=== PATIENT | male | born 1965 | race Caucasian/White ===

== ENCOUNTER 2016-12-21 11:10 | Outpatient (CLI) | payer BC ==
[2016-12-21 12:39] LABS: #Eosinphils 0.1 thou/uL (0.0-0.7); #Lymphocytes 1.3 thou/uL (1.20-3.40); #Monocytes 0.5 thou/uL (0.11-0.59); #Neutrophils 4.4 thou/uL (1.40-6.50); %Basophils 0.4 % (0.0-1.0); %Eosinophils 1.5 % (0.0-10.0); %Lymphocytes 20.6 % (21.0-51.0); %Monocytes 7.3 % (0.0-10.0); Hematocrit 42.6 % (42.0-52.0); Mean Platelet Volume 9.1 fL (7.4-10.4); Red Blood Cell (RBC) Count 4.75 mill/uL (4.70-6.10); White Blood Cell (WBC) Count 6.3 thou/uL (4.8-10.8)
[2016-12-21 12:58] LABS: Anion Gap 11 mmol/L (10-20); BUN (Urea Nitrogen) 16 mg/dL (8.4-25.7); Calc. Creatinine Clearance 0 mL/min (70-130); Calcium 9.5 mg/dL (7.8-10.44); Carbon Dioxide 28 mmol/L (22-29); Chloride 107 mmol/L (98-107); Estimated GFR-MDRD 83
--- NOTE | 2016-12-22 10:01 | EKG ---
Test Reason : PREOP Blood Pressure : / mmHG Vent. Rate : 053 BPM Atrial Rate : 053 BPM P-R Int : 158 ms QRS Dur : 086 ms QT Int : 442 ms P-R-T Axes : 056 036 028 degrees QTc Int : 414 ms Sinus bradycardia Otherwise normal ECG When compared with ECG of 27-SEP-2014 07:08, Vent. rate has decreased BY 53 BPM Confirmed by DELANO SALGADO ([id number]) on 12/22/2016 10:00:59 AM Referred By: SUSAN Confirmed By:DELANO SALGADO
== END 2016-12-21 11:11 | disposition home or self-care (01) ==
LOC: LABBT 11:10
PROVIDERS: ATTEND Neurological Surgery
DX: Z01.818 Encounter for other preprocedural examination (principal); M54.16 Radiculopathy, lumbar region
CPT/HCPCS: 80048; 85025; 93005; 93010

== ENCOUNTER 2016-12-28 08:24 | Day surgery (SDC) | payer BC ==
[2016-12-21 11:18] VITALS: BMI 25.7
--- NOTE | 2016-12-27 21:59 | HP ---
HISTORY OF PRESENT ILLNESS: Mr. Duarte is a 51-year-old gentleman who presents for evaluation of r oughly 1-1/2 month severe left lower extremity radiculopathy in an S1 pattern. He has had a history of this pain in the past 2 years or so on and off and then ultimately, his pain has significantly w orsened. He has attempted injections, physical therapy, and chiropractics with minimal help. He mathur s an MRI from [facility] that reveals an inferiorly migrated L5 disk herniation to the left, wh ich showed the symptoms very well, who presents now to discuss the possibility of surgical history i f possible. PAST MEDICAL HISTORY: Hydronephrosis and hypertension. CURRENT MEDICATIONS: Amlodipine, bisoprolol, Lyrica, and multivitamins. ALLERGIES: To PENICILLIN and DIOVAN. PAST SURGICAL HISTORY: Kidney stent placement. PHYSICAL EXAMINATION: GENERAL: Patient is alert and oriented x3. NEUROLOGIC: Gait is normal. Straight leg raise is positive on the left, negative on the right is n egative Alexey's maneuver bilaterally. There is no sensory disturbance that I can discern. Reflex es are equal and present bilaterally at the patella. ASSESSMENT: Lumbar radiculopathy. PLAN: Dr. Ambrose met with the patient, reviewed imaging, and ultimately advocated for a left L5 disk ectomy. He explained to the patient the risks, benefits, and alternatives to the procedure. The keli conklin expressed understanding and would like to move forward with surgery as discussed. I do believ e the patient is mentally competent and capable of making medical decisions for himself and we will move forward with surgery as planned. This is Ross Costa PA-C, dictating for Dr. Ambrose.
[2016-12-28] MEDS ORDERED: Ketorolac Tromethamine 30 MG/ML VIAL ONE (08:56)
[2016-12-28] MEDS ORDERED: Midazolam HCl 2 mg/2 ml Vial ONE (09:31)
[2016-12-28] MEDS ORDERED: Fentanyl 100 MCG/2 ML VIAL ONE (09:31)
[2016-12-28] MEDS ORDERED: Levofloxacin 500 mg/D5W 100 ml Premix Bag ONE (09:34)
[2016-12-28] MEDS ORDERED: Clindamycin/D5W 900 mg/50 ml Premix Bag ONE ×2 (09:34→17:04)
[2016-12-28] MEDS ORDERED: Thrombin 5000 UNITS/5 ML VIAL ONE (09:39)
[2016-12-28] MEDS ORDERED: Sodium Chloride 0.9% 0 ML ONE (09:39)
[2016-12-28] MEDS ORDERED: Bupivacaine/Epinephrine 0.5% 10 ML VIAL ONE ×3 (09:52→11:55)
[2016-12-28] MEDS ORDERED: Propofol 200 MG/20 ML VIAL ONE (10:43)
[2016-12-28] MEDS ORDERED: Ondansetron HCl/PF 4 MG/2 ML Vial ONE (10:43)
[2016-12-28] MEDS ORDERED: PHENYLEPHRINE-NS 100 MCG/ML 10 ML SYRINGE ONE (10:43)
[2016-12-28] MEDS ORDERED: Dexamethasone 20 MG/5 ML VIAL ONE (10:43)
[2016-12-28] MEDS ORDERED: Lidocaine 2% PF 10 ML AMP (For Epidural Use) ONE (10:43)
[2016-12-28] MEDS ORDERED: ePHEDrine/0.9% NaCl/PF SYRINGE 50 mg/10 ml ONE (10:43)
[2016-12-28] MEDS ORDERED: Bupivacaine PF 0.5% 30 ML VIAL ONE ×2 (12:24→12:42)
[2016-12-28] MEDS ORDERED: Tamsulosin HCl 0.4 MG CAP ONE (14:56)
[2016-12-28] MEDS ORDERED: Promethazine HCl 25 MG/ML VIAL ONE (15:51)
[2016-12-28] MEDS ORDERED: Sodium Chloride 0.9% 10 ML ONE (17:09)
[2016-12-28] MEDS ORDERED: Acetaminophen/Codeine 30-300mg Tablet ONE (17:14)
--- NOTE | 2016-12-29 08:57 | OP ---
DATE OF PROCEDURE: 12/28/2016 SURGEON: Larry Ambrose M.D. WASHER MEAT: Bernardino Costa PA-C. INDICATION: Pain. DIAGNOSIS: Lumbar radiculopathy. PROCEDURE: Left L5 discectomy. ANESTHESIA: General. TECHNIQUE: The patient was brought to the operating room and placed under general anesthesia. He w as flipped from a supine to a prone position on the operating room table. A linear incision was maxine nned over the L5-S1. After prepping and draping and after an appropriate operative pause, the incis ion was created. The soft tissues were swept left of midline. Self-retaining retractors placed in the wound for optimal exposure. After confirming the appropriate location, 2, 3 and 4-mm Kerrisons were used to perform a hemilaminectomy along the inferior aspect of L5 and superior aspect of S1. T he descending S1 nerve root was identified and mobilized medially. A large protuberant disk mask wa s identified just medial to the pedicle beneath the descending S1 nerve root. This was carefully re moved until there was complete decompression of the descending S1 nerve root. The wound was then ir rigated. Hemostasis was maintained throughout. The wound was then closed in anatomic layers and a pressure dressing was applied. There were no known procedural complications.
--- NOTE | 2016-12-29 09:34 | OP ---
DATE OF PROCEDURE: 12/28/2016 PREOPERATIVE DIAGNOSIS: Bilateral inguinal hernia. POSTOPERATIVE DIAGNOSIS: Bilateral inguinal hernia. OPERATION PERFORMED: Open bilateral inguinal hernia repair with mesh patch and plug. SURGEON: Dr. Tristin Sepulveda ANESTHESIA: General endotracheal. INDICATIONS: The patient is a 51-year-old white male. He was having spine surgery per Dr. Eduardo crystal. He has a long history of bilateral inguinal hernia and requests simultaneous hernia repair unde r the same anesthetic. OPERATIVE PROCEDURE IN DETAIL: Informed consent was obtained. The patient was taken to the operati ng room where general endotracheal anesthesia was obtained. Dr. Ambrose performed the patient's back surgery with the patient in the prone position. Upon successful and uneventful completion of his op eration, the wound was closed in he was rolled over into the supine position. His bilateral indirect inguinal area was trimmed of hair, prepped with ChloraPrep, draped in sterile fashion. Local anesthetic was infiltrated using 0.25% Marcaine with epinephrine. The operation wa s begun on the left side. An oblique left inguinal incision was created and dissection was carried through skin and subcutaneous tissue. The fascia was incised parallel to its fibers so as to open t he inguinal canal. The cord was dissected and controlled with a Navarre drain. The patient was not ed to have a large direct inguinal hernia with no evidence of an indirect hernia. There was a bulgi ng aspect of fatty tissue on the lateral aspect of the inferior epigastric vessels. The hernia sac was circumscribed at its base with electrocautery. Next a large mesh plug was obtained and secured to the apex of the hernia sac and the complex was inverted in the preperitoneal space. The plug was secured to the fascial edges with interrupted sutures of 2-0 Vicryl. The wound was imbricated with 2 interrupted sutures of 2-0 Vicryl. Mesh patch was obtained, trimmed to appropriate size, placed in the floor of the inguinal canal, and secured in place with several interrupted sutures of 2-0 Chauncey ryl. ON-Q pain catheter was obtained and brought into the wound laterally and positioned appropriately. The fascia was closed over the pain pump catheter. The wound was closed in layers with 3-0 and 4-0 Monocryl. The catheter was flushed with 0.5% plain Marcaine. Attention was turned to the right side. A mirror image incision and dissection was performed. The patient was noted to have another substantial direct inguinal hernia with no evidence of an indirect hernia sac. The operation was performed similarly using a large mesh patch and plug. The ON-Q duke n catheter was positioned in the same fashion on the right side. Both skin incisions were closed externally with Dermabond. A spot of Dermabond was placed at the ca theter exit site bilaterally. The catheters were attached to a bifurcated catheter attached to a 40 0 mL ON-Q reservoir. This was filled with 0.5% plain Marcaine. Sterile occlusive dressings were ap plied over the catheter exit sites. There were no complications. Blood loss was negligible. The p atient tolerated the procedure well and was taken to recovery in stable condition.
== END 2016-12-28 18:00 | disposition home or self-care (01) ==
LOC: SDC 08:24
PROVIDERS: ATTEND Specialist
PROC: 0YUA0JZ Supplement Bilateral Inguinal Region with Synthetic Substitute, Open Approach (ICD-10-PCS; principal; 2016-12-28)
PROC: 01NB0ZZ Release Lumbar Nerve, Open Approach (ICD-10-PCS; principal; 2016-12-28)
PROC: 0ST20ZZ Resection of Lumbar Vertebral Disc, Open Approach (ICD-10-PCS; principal; 2016-12-28)
DX: M54.16 Radiculopathy, lumbar region (principal); K40.20 Bilateral inguinal hernia, without obstruction or gangrene, not specified as recurrent; I10 Essential (primary) hypertension; Z79.82 Long term (current) use of aspirin; Z79.899 Other long term (current) drug therapy; Z88.0 Allergy status to penicillin; Z88.8 Allergy status to other drugs, medicaments and biological substances
CPT/HCPCS: 76001; 96374; S2900; A4216; A4306; C1781; J0131; J1100; J1170; J1885; J1956; J2001; J2250; J2405; J2550; J2704; J3010; J3370; J3490; S0020

== ENCOUNTER 2016-12-28 19:30 | Observation (INO) | payer BC ==
[2016-12-28 20:27] LABS: #Lymphocytes 0.5 thou/uL (1.20-3.40); #Monocytes 0.4 thou/uL (0.11-0.59); #Neutrophils 9.9 thou/uL (1.40-6.50); %Basophils 0.1 % (0.0-1.0); %Eosinophils 0.2 % (0.0-10.0); %Lymphocytes 4.6 % (21.0-51.0); %Monocytes 3.5 % (0.0-10.0); Hematocrit 41.8 % (42.0-52.0); Mean Platelet Volume 8.8 fL (7.4-10.4); Red Blood Cell (RBC) Count 4.61 mill/uL (4.70-6.10); White Blood Cell (WBC) Count 10.9 thou/uL (4.8-10.8)
[2016-12-28 20:33] LABS: PTT 26.7 SEC (22.9-36.1); Prothrombin Time 14.3 SEC (12.0-14.7)
[2016-12-28 20:48] LABS: ALT (SGPT) 21 U/L (8-55); AST (SGOT) 26 U/L (5-34); Alkaline Phosphatase 54 U/L (40-150); Anion Gap 16 mmol/L (10-20); BUN (Urea Nitrogen) 13 mg/dL (8.4-25.7); CK (CPK) 306 U/L (30-200); Calc. Creatinine Clearance 0 mL/min (70-130); Carbon Dioxide 24 mmol/L (22-29); Chloride 105 mmol/L (98-107); Estimated GFR-MDRD 66; Globulin 2.3 g/dL (2.4-3.5); Protein, Total 6.3 g/dL (6.0-8.3)
[2016-12-28 20:50] LABS: Troponin I Less than 0.010 ng/mL (< 0.028)
--- NOTE | 2016-12-28 22:08 | CT ---
HEAD CT NONCONTRAST: Indication: Left upper extremity paresthesia. FINDINGS: There is no evidence of acute intracranial hemorrhage, mass effect or midline shift. Ventricular sys tem is within normal limits in size. Focal hypodensity of the posterior and lateral aspect of the ri ght lentiform nucleus could relate to dilated perivascular space or cavitary lacunar infarction. There is a small osteoma involving the lateral aspect of the left frontal air cells. IMPRESSION: 1. No acute intracranial hemorrhage or mass effect. 2. Dilated perivascular space versus cavitary lacunar infarction by lentiform nucleus. POS: [facility]
[2016-12-28] MEDS ORDERED: HYDROcodone/Acetaminophen 5/325 mg Tablet ONE ×2 (22:14→22:41)
--- NOTE | 2016-12-28 22:16 | RAD ---
UPRIGHT PORTABLE CHEST ONE VIEW: History: 51-year-old male with left upper extremity parasethia. Hernia and back surgery today, now complainin g of tingling and numbness in both arms. Comparison: 08-24-14 FINDINGS: Monitor leads overlie the chest. Heart size is within normal limits. The lungs are clear. IMPRESSION: No acute intrathoracic disease. POS: [facility]
[2016-12-28] MEDS ORDERED: HYDROcodone/Acetaminophen 5/325 mg Tablet PO PRN ×2 (23:27)
[2016-12-28] MEDS ORDERED: Ondansetron ODT 4 MG TAB SL PRN (23:27)
[2016-12-28] MEDS ORDERED: Ondansetron HCl/PF 4 MG/2 ML Vial IVP PRN (23:27)
[2016-12-28] MEDS ORDERED: Acetaminophen 325 MG TAB PO PRN (23:27)
[2016-12-28 23:50] LABS: Troponin I Less than 0.010 ng/mL (< 0.028)
[2016-12-29] MEDS ORDERED: Nitroglycerin 0.4 MG TAB (25 Tab Bottle) PO PRN (00:48)
[2016-12-29] MEDS ORDERED: Ondansetron HCl/PF 4 MG/2 ML Vial IVP PRN (00:48)
[2016-12-29] MEDS ORDERED: Acetaminophen 325 MG TAB PO PRN (00:48)
[2016-12-29] MEDS ORDERED: Mag-Al 1200 mg/1200 mg/30 ML UDCUP PO PRN (00:48)
[2016-12-29] MEDS ORDERED: Senokot 8.6 MG TAB PO PRN (00:48)
[2016-12-29 02:41] LABS: #Lymphocytes 0.6 thou/uL (1.20-3.40); #Monocytes 0.7 thou/uL (0.11-0.59); #Neutrophils 9.4 thou/uL (1.40-6.50); %Basophils 0.1 % (0.0-1.0); %Eosinophils 0.2 % (0.0-10.0); %Lymphocytes 5.5 % (21.0-51.0); %Monocytes 6.3 % (0.0-10.0); Hematocrit 37.9 % (42.0-52.0); Mean Platelet Volume 8.7 fL (7.4-10.4); Red Blood Cell (RBC) Count 4.19 mill/uL (4.70-6.10); White Blood Cell (WBC) Count 10.7 thou/uL (4.8-10.8)
[2016-12-29] MEDS: Sodium Chloride 0.9% 1,000 ML IV SCH ×2 (02:56→18:52)
[2016-12-29 02:57] LABS: Troponin I 0.015 ng/mL (< 0.028)
[2016-12-29 03:15] LABS: ALT (SGPT) 19 U/L (8-55); AST (SGOT) 24 U/L (5-34); Alkaline Phosphatase 45 U/L (40-150); Anion Gap 11 mmol/L (10-20); BUN (Urea Nitrogen) 12 mg/dL (8.4-25.7); Bilirubin, Total 0.9 mg/dL (0.2-1.2); Calc. Creatinine Clearance 113 mL/min (70-130); Carbon Dioxide 25 mmol/L (22-29); Chloride 109 mmol/L (98-107); Cholesterol 172 mg/dl (< 200 Desired); Estimated GFR-MDRD 80; Globulin 2.1 g/dL (2.4-3.5); LDL Cholesterol, Calculated 113 mg/dL; Protein, Total 5.7 g/dL (6.0-8.3)
[2016-12-29] MEDS ORDERED: Morphine Sulfate 2 MG/ML SYRINGE SLOW IVP SCH (03:45)
--- NOTE | 2016-12-29 06:08 | HP ---
REASON FOR ADMISSION: Left upper extremity tingling, numbness. HISTORY OF PRESENTING ILLNESS: Patient gives history of having had L5 diskectomy along with bilateral ventral hernia repairs done by Dr. Ambrose and Dr. Sepulveda respectively yesterday morning. He felt good prior to going home. Yesterday around evening, patient felt weak and he also started left upper extremity tingling and numbness. He felt like his left hand was going to sleep. This gradually became worse and patient finally made it to the emergency room. Has no complaints of chest pain as such at present. No complaints of fever, but has dry cough. No urinary frequency or urgency. Has no weakness in any of the extremities as such and is ambulating here in the ER. PAST MEDICAL AND SURGICAL HISTORY: History of hypertension, hydronephrosis with multiple stents, hypertension, L5 diskectomy with ventral hernia x2 repair done yesterday morning, wisdom teeth surgery. CURRENT MEDICATIONS: Takes Lyrica 200 mg twice daily, Norvasc 5 mg p.o. q.a.m. , bisoprolol 5 mg p.o. daily. ALLERGIES: To PENICILLIN and VALSARTAN. PERSONAL HISTORY: Does not abuse alcohol or drugs. No history of smoking. FAMILY HISTORY: Mother is healthy and living. Father has history of atrial fibrillation and is living. Grandma had history of stroke. REVIEW OF SYSTEMS: The following complete review of systems was negative unless otherwise mentioned in the HPI or below: Constitutional: Weight loss or gain, ability to conduct usual activities. Skin: Rash, itching. Eyes: Double vision, pain. ENT/Mouth: Nose bleeding, neck stiffness, pain, tenderness. Cardiovascular: Palpitations, dyspnea on exertion, orthopnea. Respiratory: Shortness of breath, wheezing, cough, hemoptysis, fever, or night sweats. Gastrointestinal: Poor appetite, abdominal pain, heartburn, nausea, vomiting, constiption, or diarrhea. Genitourinary: Urgency, frequency, dysuria , nocturia. Musculoskeletal: Pain, swelling. Neurologic/Psychiatric: Anxiety , depression. Allergy/Immunologic: Skin rash, bleeding tendency. PHYSICAL EXAMINATION: GENERAL: Patient is a 51-year-old male who is currently not in any acute distress. VITAL SIGNS: Blood pressure 136/84, pulse 86 per minute, respiratory rate 20 per minute, temperature 98.5 degrees Fahrenheit, saturating 97% on room air. NECK: Supple, no elevated JVD. HEENT: Eyes, extraocular muscles intact. Pupils reacting to light. Oral cavity, mucous membranes are dry. No exudates or congestion. CARDIOVASCULAR SYSTEM: S1, S2 heard. Regular rhythm. RESPIRATORY SYSTEM: Air entry 1+ bilateral. No rales or rhonchi. ABDOMEN: Soft, bowel sounds heard. No tenderness, rigidity, or guarding. Surgical site on the abdomen is clean. He also has anesthetic infusion going through his abdomen. EXTREMITIES: No peripheral edema or calf tenderness. VASCULAR SYSTEM: Peripheral pulses 1+ bilateral. No ischemic ulcerations or gangrene. CENTRAL NERVOUS SYSTEM: No gross focal deficits seen. Patient is alert, awake , oriented x3. PSYCHIATRIC SYSTEM: The patient's mood is euthymic. No hallucinations or delusions. LABORATORY AND X-RAY FINDINGS: White count of 10, H and H 13 and 41, platelet count 126, MCV is 90 with 91% neutrophils. PT, INR, PTT within normal limits. Electrolytes stable. BUN 13, creatinine 1.1, glucose 203. Liver enzymes within normal limits. CK level is 306. First set of cardiac enzymes are negative. Albumin is 4.0. Chest x-ray done shows no acute intrathoracic disease. CT brain done shows no acute hemorrhage or mass effect. There is a questionable lacunar infarct near the lentiform nucleus versus dilated perivascular space. EKG done shows normal sinus rhythm at 87 beats per minute. There is poor R-wave progression. CLINICAL IMPRESSION AND PLAN: Patient will be under observation on the stroke unit. His left upper extremity paresthesias is slowly resolving. We will obtain serial troponins as well as an MRI without contrast in the morning. Cardiology and Neurology consultations will be requested. We will follow transient ischemic attack evidence based protocol. Echo with 2D Doppler for left ventricular function and ultrasound carotids will be obtained as well. It is unclear if the patient has left upper extremity paresthesias which started in the hand is due to positioning postop at home, or if this is a neurocardiac issue; we will discern the same. We will not do a stress test due to his recent postop status. I have placed him on aspirin 325 mg daily in the hopes that meninges are intact with the diskectomy done, this needs to be confirmed with Dr. Ambrose in the morning. Please note, I have seen and examined patient on 12/28/2016. He also appears to be dehydrated and we will place him on normal saline at 80 mL per hour. We will continue his home medications of bisoprolol and Norvasc along with Lyrica as before. [facility]
[2016-12-29] MEDS ORDERED: Aspirin 325 MG TAB PO SCH (08:00)
[2016-12-29] MEDS: Famotidine 20 MG TAB PO SCH ×2 (08:36→20:14)
[2016-12-29] MEDS: Aspirin 325 MG TAB PO SCH (08:36)
--- NOTE | 2016-12-29 08:58 | ULT ---
CAROTID ULTRASOUND WITH SALGADO SCALE AND DOPPLER DUPLEX COLOR FLOW IMAGING SPECTRAL ANALYSIS PERFORMED: CLINICAL INDICATION: Carotid stenosis. FINDINGS: There is minimal atherosclerotic calcification of the carotid arteries. PEAK SYSTOLIC VELOCITY (CM/S): Right CCA 104 Left CCA 119 Right ICA 63 Left ICA 55 There is antegrade flow within the visualized bilateral vertebral arteries. INCIDENTAL FINDINGS: Small hypoechoic foci of the imaged portions of the thyroid gland are present, incompletely evaluate d. IMPRESSION: 1. No hemodynamically significant stenosis of the right internal carotid artery. 2. No hemodynamically significant stenosis of the left internal carotid artery. 3. Incidental note of foci of altered echotexture within the thyroid gland. Recommend dedicated th yroid ultrasound as followup for further assessment. POS: [facility]
[2016-12-29] MEDS ORDERED: FLU VACC QS2017-18 36 mo. & older 0.5 ML SYRINGE IM ONE (09:00)
[2016-12-29] MEDS ORDERED: Bisoprolol Fumarate 5 MG TAB PO SCH (09:00)
[2016-12-29] MEDS ORDERED: Pregabalin 75 MG CAP PO SCH (09:00)
[2016-12-29] MEDS ORDERED: oxyCODONE/Acetaminophen 5 mg/325 mg Tablet PO PRN (11:34)
[2016-12-29] MEDS: oxyCODONE/Acetaminophen 5 mg/325 mg Tablet PO PRN ×4 (12:16→23:46)
--- NOTE | 2016-12-29 15:10 | CON ---
DATE OF CONSULTATION: 12/29/2016 HISTORY OF PRESENT ILLNESS: The patient is a pleasant 51-year-old gentleman who presents with left upper extremity weakness. The patient has no previous cardiac history. The patient states that he is physically active and has no difficulty with breathing or chest discomfort. The patient yesterday and underwent hernia and back surgery. Following the procedure, he went home and developed numbness in his left arm. The patient underwent an emergent CT scan which showed a possible lacunar infarct. The patient's numbness lasted for approximately 12 hours. He states his numbness and weakness have resolved. PAST MEDICAL HISTORY: Hypertension. PAST SURGICAL HISTORY: Hernia surgery, back surgery and a urologic surgery. SOCIAL HISTORY: Nonsmoker. MEDICATIONS: Amlodipine 5 daily, Lyrica 200 b.i.d., Celebrex 200 b.i.d. FAMILY HISTORY: No strong family history of coronary artery disease. ALLERGIES: PENICILLIN. REVIEW OF SYSTEMS: Ten-point system otherwise unremarkable. PHYSICAL EXAMINATION: GENERAL: This is a well-developed gentleman in no acute distress. VITAL SIGNS: Blood pressure 134/72. NECK: No jugular venous distention, no carotid bruits. LUNGS: Clear to auscultation. HEART: Regular rate and rhythm, normal S1, S2, no murmurs. ABDOMEN: Nondistended. EXTREMITIES: No edema. SKIN: Warm and dry. NEUROLOGIC: Nonfocal. VASCULAR: Radial pulses are 2+. EKG revealed normal sinus rhythm, normal ECG. Carotid ultrasound revealed no significant stenosis. IMPRESSION: 1. Possible cerebrovascular accident. 2. Hypertension. 3. Status post hernia and back surgery. This gentleman presented with weakness in his left arm and a possible cerebrovascular accident. The patient is undergoing a neurological evaluation. His EKG is unremarkable. We will check the patient's echocardiogram and will follow this patient with you through his hospitalization. [facility]
--- NOTE | 2016-12-29 16:48 | MRI ---
BRAIN MRI NONCONTRAST 12/29/16 COMPARISON: Head CT from previous day. CLINICAL HISTORY: Left upper extremity paresthesia, TIA. FINDINGS: Ventricular system is normal in size. Septum pellucidum and third ventricle are midline. No acute t erritorial infarction, intracranial mass effect or midline shift. No hemorrhagic susceptibility intr acranially. There is a circumscribed oval 13 mm left parafalcine mass at the vertex compatible with a small meningioma. IMPRESSION: 1. No acute intracranial abnormalities. 2. Small extra-axial mass along the left aspect of the falx at the vertex, compatible with a me ningioma. POS: [facility]
--- NOTE | 2016-12-29 16:59 | PDOC.PN ---
- Subjective Encounter Start Date: 12/29/16 Encounter Start Time: 16:40 Subjective: f/u for LUE paresthesia and concern for TIA. MRI showing likely meningioma -: at vertex of L falx region. No new sx or worsening. - Objective Resuscitation Status: Resuscitation Status FULL:Full Resuscitation MAR Reviewed: Yes Vital Signs & Weight: Vital Signs (12 hours) Temp Pulse Pulse Pulse Resp BP BP 12/29/16 15:47 98.7 F 71 14 12/29/16 13:18 12/29/16 11:00 98.6 F 76 16 12/29/16 09:15 79 80 138/79 167/90 H 12/29/16 09:08 65 57 L 123/76 134/72 12/29/16 08:00 98.8 F 77 16 12/29/16 07:30 98.8 F 77 16 BP Pulse Ox 12/29/16 15:47 127/73 97 12/29/16 13:18 97 12/29/16 11:00 137/81 97 12/29/16 09:15 12/29/16 09:08 12/29/16 08:00 12/29/16 07:30 129/79 95 Weight Weight 200 lb I&O: 12/28/16 12/29/16 12/30/16 06:59 06:59 06:59 Intake Total 651 Balance 651 Result Diagrams: 12/29/16 02:25 12/29/16 02:25 Radiology Reviewed by me: Yes (MRI brain - L falx mass 1.3cm presumed meningioma ) EKG Reviewed by me: Yes (Tele - SR in 70's) Phys Exam - Physical Examination Constitutional: NAD HEENT: PERRLA, oral pharynx no lesions Neck: no JVD, supple Respiratory: no wheezing, clear to auscultation bilateral Cardiovascular: RRR post-surgical changes noted with pain pumps in place Gastrointestinal: soft, no distention, positive bowel sounds Musculoskeletal: no edema, pulses present Neurological: normal sensation, moves all 4 limbs Psychiatric: A&O x 3 Skin: normal turgor, cap refill <2 seconds Dx/Plan (1) Paresthesia and pain of left extremity Code(s): M79.609 - PAIN IN UNSPECIFIED LIMB; R20.2 - PARESTHESIA OF SKIN Status: Acute Comment: ? etiology, ? relationship to intracranial mass, conservative mgmt, ASA 81mg daily (2) Intracranial mass Code(s): R90.0 - INTCRN SPACE-OCCUPYING LESION FOUND ON DX IMAGING OF CNSL Status: Acute Comment: See above (3) HTN (hypertension) Code(s): I10 - ESSENTIAL (PRIMARY) HYPERTENSION Status: Chronic Qualifiers: Hypertension type: essential hypertension Qualified Code(s): I10 - Essential (primary) hypertension Comment: Resume home BP regimen (4) Status post inguinal hernia repair Code(s): Z98.890 - OTHER SPECIFIED POSTPROCEDURAL STATES; Z87.19 - PERSONAL HISTORY OF OTHER DISEASES OF THE DIGESTIVE SYSTEM Status: Acute Comment: Pain control, supportive care (5) Status post lumbar discectomy Code(s): Z98.890 - OTHER SPECIFIED POSTPROCEDURAL STATES Status: Acute Comment: Stable, pain control, supportive care - Plan plan discussed w/ family, PT/OT, out of bed/ambulate, DVT proph w/SCDs Stable overall -: Consult Neurosurgery for opinion regarding ?meningioma -: ASA 81mg daily -: Resume home BP regimen -: Likely home in am * .
[2016-12-29] MEDS ORDERED: traMADol HCl 50 MG TAB PO PRN (17:06)
--- NOTE | 2016-12-29 18:03 | CON ---
NEUROLOGY CONSULTATION DATE OF CONSULTATION: 12/29/2016. CONSULTING PHYSICIAN: Hospitalist Service. IMPRESSION: 1. Possible small vessel transient ischemic attack. 2. Incidental meningioma of insignificant size. PLAN: 1. Aspirin 81 mg per day. 2. Patient can be discharged home. HISTORY OF PRESENT ILLNESS: Mr. Duarte is a 51-year-old man with a past history of hypertension. He came in with complaints of acute onset of left arm numbness and tingling. There was no associate d weakness. He did not have any involvement of the face or leg. His symptoms lasted from yesterday until earlier this morning. He has never had anything like this before. His carotid Doppler study was unremarkable. His MRI of the brain did not show any evidence of ischemia. His echocardiogram was also unremarkable. His vital signs since admission had been doing well with only minimal transi ent hypertension with diastolic of 90. He is without any complaint of headache, nausea, vomiting, v ertigo, blurred vision or double vision. PAST MEDICAL HISTORY: Hypertension. ALLERGIES: PENICILLIN, VALSARTAN. SOCIAL HISTORY: No tobacco or alcohol use. He is . FAMILY HISTORY: Noncontributory. REVIEW OF SYSTEMS: Otherwise, negative. PHYSICAL EXAMINATION: VITAL SIGNS: Blood pressure 127/73, pulse is 71, respirations 14, temperature 98.7. HEENT: Pupils equal and reactive. Conjunctivae clear. NECK: Supple. NEUROLOGIC: He is alert and appropriate. Speech is fluent and clear. Cranial nerves II-XII are in tact. Motor exam showed symmetric strength. Sensation was intact to light touch. Gait and station were normal. No abnormal movements were seen. SUMMARY: This is a middle-aged man with some transient numbness and tingling in the left arm, sugge sting the possibility of a small vessel TIA. His workup is otherwise negative appears stable for [facility]. The meningioma is not likely to cause him any problems.
[2016-12-29] MEDS: Pregabalin 50 MG CAP PO SCH (20:12)
--- NOTE | 2016-12-29 22:29 | CON ---
DATE OF CONSULTATION: 12/29/2016 HISTORY OF PRESENT ILLNESS: Mr. Duarte is a 51-year-old male that presented on 12/28/2016 to the [facility] merg[facility] Department at [facility], status post 1 day after a lumbar L5 microdiskectomy and bilateral hernia repair with Dr. Ambrose and Dr. Sepulveda respectively. He came in with complaints of acute onset of left arm numbness and tingling. There is no associated weakness and he did not have any involvement of the face or the leg. His symptoms lasted approximately 12 hours and then resolve d. He has never had anything like this event before. Carotid Doppler study was unremarkable. The patient had an MRI of the brain that did not show any evidence of ischemia; however, it did show a 1 3 mm right side of the falx at the vertex of possible meningioma. His vital signs have been stable since admission and he has no complaint of headache, nausea, vomiting or vision changes. He is able to ambulate in the sifuentes and tolerate a regular diet and there are no neurologic deficits on exam. Neurosurgery was consulted for the findings of the meningioma on MRI scan. PAST MEDICAL HISTORY: Hypertension. ALLERGIES: PENICILLIN and VALSARTAN. SOCIAL HISTORY: No tobacco or alcohol use. The patient is . FAMILY HISTORY: Noncontributory. REVIEW OF SYSTEMS: Twelve-point review of systems was completed and is negative unless otherwise st ated in the above HPI. PHYSICAL EXAMINATION: HEENT: Normocephalic, atraumatic. Hearing intact. Moist mucous membranes. Eyes: Pupils equal an d reactive to light. Extraocular muscles are intact. Sclerae is white, nonicteric. NECK: Trachea is midline. CARDIOVASCULAR: The patient has regular rate and rhythm, normal S1, S2 heart sounds, has no distal cyanosis or clubbing noted. RESPIRATORY: Patient has bilateral symmetric chest rise, appears to be in no shortness of breath. MUSCULOSKELETAL: Upper extremity; patient has 5/5 strength bilaterally in the upper extremity. He has no dermatomal sensory loss. His pulses are equal and symmetric in the brachial and radial pulse s bilaterally. Lower extremity exam; patient has full range of motion and 5/5 strength in the lower extremity bilaterally. Posterior tibial pulses are equal and +2 bilaterally in the lower extremity . NEUROLOGIC: Cranial nerves II through XII are grossly intact. Speech is fluent. He answers my que stions appropriately, seems his gait and station are steady. There is no imbalance or signs of cerv ical myelopathy. Incision in the lumbar spine from the L5 microdiskectomy is clean, dry and intact. There is no erythematous or purulent discharge or any other signs of infection from the incision. ASSESSMENT: Possible small vessel transient ischemic attack, incidental meningioma of insignificant size on the right vertex adjacent to the falx. PLAN: The patient can take daily aspirin 81 mg and can be discharged home. He will follow up with Dr. Ambrose in 2 weeks at his regular postoperative appointment and they can discuss imaging of the me ningioma at that time. If there are any further questions, please feel free to contact Neurosurgery .
[2016-12-30] MEDS: Sodium Chloride 0.9% 1,000 ML IV SCH (02:49)
[2016-12-30] MEDS: oxyCODONE/Acetaminophen 5 mg/325 mg Tablet PO PRN (05:46)
[2016-12-30 07:56] VITALS: BP 145/89; TEMP 98
[2016-12-30] MEDS: Pregabalin 50 MG CAP PO SCH (08:14)
[2016-12-30] MEDS: Famotidine 20 MG TAB PO SCH (08:17)
[2016-12-30] MEDS: Aspirin 325 MG TAB PO SCH (08:18)
[2016-12-30] MEDS ORDERED: Bisoprolol Fumarate 5 MG TAB PO SCH (09:00)
--- NOTE | 2016-12-30 09:52 | DIS ---
DATE OF ADMISSION: 12/28/2016 DATE OF DISCHARGE: 12/30/2016 DISCHARGE DIAGNOSES: 1. Question of transient ischemic attack, resolved. 2. Hypertension, stable. 3. Dyslipidemia. 4. Paresthesias of the left upper extremity. 5. Probable meningioma. 6. Status post bilateral inguinal hernia repair. 7. Status post lumbar diskectomy at L5. CONSULTATIONS: Dr. Iqbal with Neurology Service. Dr. Ambrose with Neurosurgical Service. PERTINENT LABORATORY DATA AND X-RAY FINDINGS: Basic metabolic profile within normal limits. Total CK 306. Troponin I negative x3. Albumin 3.6-4.0. Total cholesterol 172, triglycerides 80, HDL 43, and LDL 113. CBC showed hemoglobin ranging between 12.4-13.5. CT of the brain without contrast da rfaael 12/28/2016 showed no acute intracranial process. Question of dilated perivascular space versus cavitary lacunar infarct by the lentiform nucleus. MRI of the brain dated 12/29/2016 showed no acut e intracranial process. Small extraaxial mass 1.3 cm in the left parafalcine distribution, likely m eningioma. A 2D transthoracic echocardiogram dated 12/29/2016 showed ejection fraction of 55%-60%. Normal study. Carotid Doppler study dated 12/29/2016 showed no hemodynamically significant stenosi s. HOSPITAL COURSE: Patient was observed on the stroke unit after initially presenting with left upper extremity paresthesias and concern for TIA. The patient underwent general stroke protocol includin g neuro imaging showing no acute intracranial process. Incidental finding of a 1.3 cm left parafalc ine mass, prompting neurosurgical evaluation. Current recommendations are for serial monitoring and repeat brain imaging as this finding is likely a meningioma. The patient was recommended for aspir in 81 mg daily after a questionable TIA event. The patient was also initiated on Zocor 20 mg p.o. a t bedtime. Overall, the patient remained clinically stable throughout the remainder of hospital cou rse. The patient is ready for discharge on 12/30/2016. DISCHARGE MEDICATIONS: 1. Amlodipine 5 mg one tablet p.o. daily. 2. Enteric coated aspirin 81 mg 1 tablet p.o. daily. 3. Bisoprolol 5 mg 1 tablet p.o. daily. 4. Lyrica 200 mg p.o. b.i.d. 5. Zocor 20 mg p.o. at bedtime. 6. Tramadol 50 mg p.o. every 6 hours p.r.n. 7. Percocet 7.5/325 mg 1 tablet p.o. q.6 hours p.r.n. pain. FOLLOWUP: The patient may follow with his primary care provider, Dr. Jenni Carcamo within 7 days. Th e patient will follow up with Dr. Tristin Sepulveda with General Surgery and to call his office for ap pointment time and date. Patient will follow up with Dr. Ambrose with Neurosurgical Service within 2 weeks after discharge. CONDITION ON DISCHARGE: Stable. ACTIVITY: Ad anay. DIET: Heart healthy. CODE STATUS: FULL. DISPOSITION: Home 12/30/2016.
== END 2016-12-30 09:26 | disposition home or self-care (01) ==
LOC: ERS 19:30 → 2SE 23:23
PROVIDERS: ADMIT Internal Medicine; ATTEND Internal Medicine
DX: R20.2 Paresthesia of skin (principal); I10 Essential (primary) hypertension; E78.5 Hyperlipidemia, unspecified; R90.0 Intracranial space-occupying lesion found on diagnostic imaging of central nervous system; Z88.0 Allergy status to penicillin; Z88.8 Allergy status to other drugs, medicaments and biological substances; Z98.890 Other specified postprocedural states; Z79.899 Other long term (current) drug therapy; Z98.818 Other dental procedure status; Z79.82 Long term (current) use of aspirin
CPT/HCPCS: 36415; 70450; 70551; 71010; 76001; 80053; 80061; 82553; 84484; 85025; 85610; 85730; 90471; 90682; 93005; 93306; 93880; 94760; 96374; S2900; A4216; A4306; C1781; G0008; G0378; G8978-GP-CI; G8979-GP-CI; G8980-GP-CI; G8987-GO-CI; G8988-GO-CI; G8989-GO-CI; G8996-GN-CH; G8997-GN-CH; J0131; J1100; J1170; J1885; J1956; J2001; J2250; J2270; J2405; J2550; J2704; J3010; J3370; J3490; Q2036; S0020